=== PATIENT | female | born 1990 | race American Indian/Alaskan Native ===

== ENCOUNTER → 2021-12-06 | Outpatient (CLI) | payer OTHER ==
[~2021-12-06] MED LIST: AMOX1TAB12 PO; BICARSIM FORTE125 MG PO; CODE1TAB37 PO; PRENATAL CAPSU1 EACH PO; Procardia 10MG CAP PO; Vistaryl 50MG CAP PO
== END | disposition home or self-care (01) ==
LOC: RAD 10:29
PROVIDERS: ATTEND Orthopaedic Surgery
DX: M25.552 Pain in left hip (principal); M25.551 Pain in right hip

== ENCOUNTER 2024-07-10 06:30 | Outpatient (CLI) | payer OTHER | END 2024-07-10 07:00 | disposition home or self-care (01) | LOC: MAMO-SONO 06:30 | PROVIDERS: ATTEND Specialist | DX: N63.0 Unspecified lump in unspecified breast (principal); Z12.31 Encounter for screening mammogram for malignant neoplasm of breast; E04.9 Nontoxic goiter, unspecified ==

== ENCOUNTER 2024-08-21 11:36 | Outpatient (CLI) | payer OTHER | END 2024-08-21 11:40 | disposition home or self-care (01) | LOC: SONOGRAMA 11:36 | PROVIDERS: ATTEND Pathology Anatomic Pathology & Clinical Pathology | DX: E04.2 Nontoxic multinodular goiter (principal) ==

== ENCOUNTER 2025-04-21 10:51 | Inpatient (IN) | payer OTHER ==
[~2025-04-21] VITALS: Ht 157.5 cm; Wt 64.9 kg
--- NOTE | 2025-04-21 11:05 | NUR ---
PTE REFIEFE AZUCAR BING SE LE REALIZA DEXTRO Y SE DOCUEMTA, SE ACOMODA EN ELBERT.
--- NOTE | 2025-04-21 12:05 | NUR ---
SE COLECTAN MUESTRAS DE LABORATORIO Y SE CANALIZA A PACIENTE BAJO MEDIDAS ASEPTICAS. SE NOTIFICAN ABGS.
[2025-04-21 12:13] LABS: BASO % 0.8 % (0.1-1.2); EOS # 0.14 (0.04-0.54); EOS % 2.8 % (0.7-7.0); LYMPH # 1.50 (1.18-3.74); LYMPH % 30.4 % (19.3-53.1); MEAN PLATELET VOLUME 10.00 fl (9.4-12.4); MONO # 0.40 (0.24-0.82); MONO % 8.1 % (4.7-12.5); NEUT # 2.84 (1.56-6.13); NEUT % 57.7 % (34.0-71.1); RED CELL DISTRIBUTION WIDTH 11.4 % (11.6-14.4)
[2025-04-21 12:32] LABS: BUN CREA RATIO 21.0 (7.0-25.0); CREATININE SERUM 0.47 mg/dL (0.55-1.02); GFR 150.79; OSMOLALITY SERUM 285.0 MOSM/KG (275-295)
[2025-04-21 12:34] LABS: GLUCOSE FASTING 284.0 mg/dL (65-100)
[2025-04-21 13:11] LABS: URINE APPEARANCE Clear; URINE BILIRRUBIN Negative (NEGATIVE); URINE BLOOD Negative; URINE COLOR Yellow; URINE LEUKOCYTE Negative; URINE NITRATE Negative; URINE PROTEIN Negative (NEGATIVE); URINE UROBILINOGEN 0.2 E.U./dl
[2025-04-21 13:12] LABS: URINE BACTERIA 29.9 uL (0.0-1933); URINE EPITHELIAL CELLS 11.6 uL (0.0-38.8); URINE RBC 2.3 uL (0.0-20.8); URINE WBC 11.6 uL (0.0-23.2)
[2025-04-21] MEDS ORDERED: INSULIN GLARGINE,HUM.REC.ANLOG 1,000 UNITS/10 ML UNITS SUBCUTANEO STA (13:29)
[2025-04-21] MEDS ORDERED: INSULIN LISPRO 1,000 UNIT/10 ML UNITS SUBCUTANEO PRN (13:30)
[2025-04-21] MEDS ORDERED: 0.9 % SODIUM CHLORIDE 1,000 ML IV SCH (13:30)
[2025-04-21] MEDS ORDERED: DEXTROSE 50 % IN WATER 0.5 G/ML DISP.SYRIN IV PRN (13:30)
[2025-04-21 13:32] LABS: URINE CAST 0.00 uL (0.0-1.40); URINE GLUCOSE >=1000 MG/DL (NEGATIVE); URINE KETONE >=160 (NEGATIVE)
[2025-04-21] MEDS ORDERED: INDOMETHACIN 25 MG CAPSULE PO STA (14:00)
[2025-04-21] MEDS ORDERED: INSULIN GLARGINE,HUM.REC.ANLOG 1,000 UNITS/10 ML UNITS SUBCUTANEO ONE (14:34)
[2025-04-21 14:50] VITALS: BP 117/80
[2025-04-21 15:05] LABS: BUN CREA RATIO 19.0 (7.0-25.0); CREATININE SERUM 0.48 mg/dL (0.55-1.02); GFR 147.18; OSMOLALITY SERUM 281.0 MOSM/KG (275-295)
[2025-04-21 15:13] LABS: GLUCOSE FASTING 257.0 mg/dL (65-100)
[2025-04-21 23:04] VITALS: BP 110/70; O2SAT 98
[2025-04-22 01:12] VITALS: BP 99/63; O2SAT 98
[2025-04-22 04:55] VITALS: BP 88/51; O2SAT 98
[2025-04-22 06:21] LABS: BASO % 0.7 % (0.1-1.2); EOS # 0.19 (0.04-0.54); EOS % 3.4 % (0.7-7.0); LYMPH # 2.12 (1.18-3.74); LYMPH % 38.3 % (19.3-53.1); MEAN PLATELET VOLUME 11.10 fl (9.4-12.4); MONO # 0.62 (0.24-0.82); MONO % 11.2 % (4.7-12.5); NEUT # 2.56 (1.56-6.13); NEUT % 46.2 % (34.0-71.1); RED CELL DISTRIBUTION WIDTH 11.3 % (11.6-14.4)
[2025-04-22 06:51] LABS: ALT/SGPT 24.0 U/L (12-78); AST/SGOT 17.0 U/L (15-37); BILIRUBIN TOTAL 0.44 mg/dL (0.3-1.2); BUN CREA RATIO 17.0 (7.0-25.0); CHOL HDL RATIO 5.0 (0-5.0); CREATININE SERUM 0.54 mg/dL (0.55-1.02); GFR 128.47; GLOBULINA 3.2 G/DL (2.4-3.5); GLUCOSE FASTING 118.0 mg/dL (65-100); HDL 42.0 mg/dl (40-60); LDL 151.0 mg/dl (0-130); OSMOLALITY SERUM 279.0 MOSM/KG (275-295); TSH 3.43 uIU/mL (0.358-3.74); VLDL 18.0 (0-39)
[2025-04-22 06:52] LABS: ERYTHROCYTE SEDIMENTATION RATE 10 mm/hr (0-20)
[2025-04-22] MEDS ORDERED: INSULIN LISPRO 1,000 UNIT/10 ML UNITS SUBCUTANEO SCH (08:00)
[2025-04-22 08:29] VITALS: BP 102/65; O2SAT 97
[2025-04-22] MEDS ORDERED: INSULIN GLARGINE,HUM.REC.ANLOG 1,000 UNITS/10 ML UNITS SUBCUTANEO SCH (09:00)
[2025-04-22 18:06] VITALS: BP 108/66; O2SAT 97
[2025-04-23 01:41] VITALS: BP 109/70; O2SAT 96
[2025-04-23] MEDS ORDERED: INSULIN LISPRO 1,000 UNIT/10 ML UNITS SUBCUTANEO SCH (08:00)
[2025-04-23 08:29] VITALS: BP 102/65; O2SAT 100
[2025-04-23] MEDS ORDERED: INSULIN GLARGINE,HUM.REC.ANLOG 1,000 UNITS/10 ML UNITS SUBCUTANEO SCH (09:00)
[2025-04-23 09:45] LABS: BUN CREA RATIO 17.0 (7.0-25.0); CREATININE SERUM 0.41 mg/dL (0.55-1.02); GFR 176.54; OSMOLALITY SERUM 289.0 MOSM/KG (275-295)
[2025-04-23 09:46] LABS: GLUCOSE FASTING 301.0 mg/dL (65-100)
[2025-04-23 12:54] LABS: URINE APPEARANCE Clear; URINE BILIRRUBIN Negative (NEGATIVE); URINE BLOOD Small; URINE COLOR Yellow; URINE LEUKOCYTE Moderate; URINE NITRATE Negative; URINE PROTEIN Negative (NEGATIVE); URINE UROBILINOGEN 0.2 E.U./dl
[2025-04-23 13:23] LABS: URINE GLUCOSE >=1000 MG/DL (NEGATIVE); URINE KETONE 80 (NEGATIVE)
[2025-04-23 13:24] LABS: URINE RBC 0-3 /HPF
[2025-04-23 13:25] LABS: URINE BACTERIA MANY; URINE MUCUS SCANT; URINE WBC 41-50 /hpf
[2025-04-23] MEDS ORDERED: CEFTRIAXONE SODIUM 2,000 MG VIAL IV SCH (17:00)
[2025-04-23] MEDS ORDERED: CEFTRIAXONE SODIUM 1,000 MG VIAL IV SCH (17:00)
[2025-04-23 17:40] VITALS: BP 104/73
[2025-04-24 03:06] VITALS: BP 110/73; O2SAT 98
[2025-04-24 08:53] VITALS: BP 115/68; O2SAT 99
[2025-04-24] MEDS ORDERED: INSULIN LI100 UNIT/1 SUBCUTANEO (13:21)
[2025-04-24] MEDS ORDERED: Lantus 1000 UNITS/10 SUBCUTANEO (13:21)
[2025-04-24] MEDS ORDERED: AMOX-CLAV 875-1 EACH PO (13:40)
[2025-04-24 17:35] VITALS: BP 114/79
[2025-04-25 15:11] LABS: PANCREATIC ISLET CELL Negative (Neg:<1:1)
== END 2025-04-24 18:09 | disposition home or self-care (01) | DRG 638 ==
LOC: ER 10:51 → SEC-K 14:27 → MEDI 14:27
PROVIDERS: General Practice; ADMIT Internal Medicine Geriatric Medicine; ATTEND Internal Medicine Geriatric Medicine
PROC: 4A033R1 Measurement of Arterial Saturation, Peripheral, Percutaneous Approach (ICD-10-PCS; principal; 2025-04-21)
PROC: BW28ZZZ Computerized Tomography (CT Scan) of Head (ICD-10-PCS; 2025-04-21)
PROC: BW40ZZZ Ultrasonography of Abdomen (ICD-10-PCS; 2025-04-23)
DX: E10.65 Type 1 diabetes mellitus with hyperglycemia (principal); N39.0 Urinary tract infection, site not specified; R51.9 Headache, unspecified; E86.0 Dehydration

== ENCOUNTER 2025-04-28 15:44 | Emergency (ER) | payer OTHER ==
[~2025-04-28] VITALS: Ht 167.6 cm; Wt 65.8 kg
[~2025-04-28 15:44] MED LIST changes: +AMOX-CLAV 875-1 EACH PO; +INSULIN LI100 UNIT/1 SUBCUTANEO; +Lantus 1000 UNITS/10 SUBCUTANEO
[2025-04-28] MEDS ORDERED: 0.9 % SODIUM CHLORIDE 1,000 ML IV SCH (16:15)
[2025-04-28 16:34] LABS: BASO % 0.6 % (0.1-1.2); EOS # 0.13 (0.04-0.54); EOS % 1.8 % (0.7-7.0); LYMPH # 1.18 (1.18-3.74); LYMPH % 16.3 % (19.3-53.1); MEAN PLATELET VOLUME 9.90 fl (9.4-12.4); MONO # 0.68 (0.24-0.82); MONO % 9.4 % (4.7-12.5); NEUT # 5.21 (1.56-6.13); NEUT % 71.6 % (34.0-71.1); RED CELL DISTRIBUTION WIDTH 12.0 % (11.6-14.4)
[2025-04-28 17:22] LABS: ALT/SGPT 27.0 U/L (12-78); AST/SGOT 21.0 U/L (15-37); BILIRUBIN TOTAL 0.37 mg/dL (0.3-1.2); BUN CREA RATIO 19.0 (7.0-25.0); CREATININE SERUM 0.67 mg/dL (0.55-1.02); GFR 100.16; GLOBULINA 3.8 G/DL (2.4-3.5); GLUCOSE FASTING 168.0 mg/dL (65-100); OSMOLALITY SERUM 285.0 MOSM/KG (275-295)
[2025-04-28 17:54] LABS: URINE APPEARANCE Clear; URINE BILIRRUBIN Negative (NEGATIVE); URINE BLOOD Negative; URINE COLOR Yellow; URINE GLUCOSE Negative (NEGATIVE); URINE KETONE Negative (NEGATIVE); URINE LEUKOCYTE Negative; URINE NITRATE Negative; URINE PROTEIN Negative (NEGATIVE); URINE UROBILINOGEN 0.2 E.U./dl
[2025-04-28 17:59] LABS: URINE BACTERIA 20.3 uL (0.0-1933); URINE EPITHELIAL CELLS 14.1 uL (0.0-38.8); URINE WBC 5.3 uL (0.0-23.2)
[2025-04-28 18:14] LABS: URINE CAST 0.00 uL (0.0-1.40); URINE RBC 0.7 uL (0.0-20.8)
== END 2025-04-28 19:55 | disposition home or self-care (01) ==
LOC: ER 15:44
PROVIDERS: Student in an Organized Health Care Education/Training Program
DX: E16.2 Hypoglycemia, unspecified (principal); E10.9 Type 1 diabetes mellitus without complications; R42 Dizziness and giddiness